=== PATIENT | female | born 1995 | race African-American/Black ===

== ENCOUNTER 2017-07-15 11:01 | Outpatient (CLI) | payer BC ==
[2017-07-15 11:56] LABS: BASOPHILS # (AUTO) 0.1 K/uL (0.0-8.0); EOSINOPHILS # (AUTO) 0.2 K/uL (0.0-0.7); LYMPHOCYTES # (AUTO) 2.2 K/uL (20.0-40.0); NEUTROPHILS # (AUTO) 4.2 K/uL (1.8-8.9); WHITE BLOOD COUNT (AUTO) 7.3 K/uL (3.8-11.8)
[2017-07-15 12:35] LABS: BASOPHILS % (AUTO) 0.9 % (0.0-2.0); EOSINOPHILS % (AUTO) 2.7 % (0.0-7.0); LYMPHOCYTES % (AUTO) 29.7 % (20.5-51.5); MEAN CORPUSCULAR HEMOGLOBIN 18.6 uug (24.7-32.8); MEAN CORPUSCULAR HGB CONC 30 g/dL (32.3-35.6); MEAN CORPUSCULAR VOLUME 61.6 fL (75.5-95.3); MONOCYTES # (AUTO) 0.7 K/uL (2.0-10.0); NEUTROPHILS % (AUTO) 57.7 % (38.5-71.5); PLATELET COUNT (AUTO) 299 K/uL (179-408)
[2017-07-15 12:42] LABS: POTASSIUM 4.5 mmol/L (3.5-5.1)
[2017-07-15 13:13] LABS: THYROID STIMULATING HORMONE 0.838 mIU/mL (0.358-3.740)
[2017-07-15 13:18] LABS: HEMATOCRIT 34.1 % (31.2-41.9); HEMOGLOBIN 10.3 g/dL (10.9-14.3); RED BLOOD CELL COUNT(AUTO) 5.54 MIL/uL (3.63-4.92)
[2017-07-15 14:04] LABS: EOSINOPHILS % (MANUAL) 4 % (0-8); LYMPHOCYTES % (MANUAL) 29 % (20-40); MONOCYTES % (MANUAL) 6 % (2-10); NEUTROPHILS % (MANUAL) 55 % (42-75); REACTIVE LYMPHOCYTES 6 % (0-0)
[2017-07-21 01:10] LABS: NEISSERIA GONORRHOEAE NAA Negative (Negative)
== END 2017-07-15 23:59 | disposition home or self-care (01) ==
LOC: LAB 11:01
PROVIDERS: ATTEND Internal Medicine
DX: Z00.01 Encounter for general adult medical examination with abnormal findings (principal)
CPT/HCPCS: 36415; 84443; 85025; 87491; 87591